=== PATIENT | female | born 1995 | race Caucasian/White ===

== ENCOUNTER 2019-05-03 17:50 | Emergency (ER) | payer SELFPAY ==
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
== END 2019-05-03 20:21 | disposition home or self-care (01) ==
LOC: ER 17:50
DX: S09.90XA Unspecified injury of head, initial encounter (principal); S50.02XA Contusion of left elbow, initial encounter; R51 Headache; V43.52XA Car driver injured in collision with other type car in traffic accident, initial encounter; Y92.413 State road as the place of occurrence of the external cause
CPT/HCPCS: 70450; 72125; 99284